=== PATIENT | female | born 1960 | race Caucasian/White ===

== ENCOUNTER 2016-04-26 08:24 | Emergency (ER) | payer BC, MEDICAID ==
[~2016-04-26] VITALS: Wt 61.0 kg
[~2016-04-26 08:24] MED LIST: DOCU-144 PO; HYDR-3498 PO
[2016-04-26] MEDS ORDERED: morphine 4 MG/ML VIAL IV STA (08:58)
[2016-04-26] MEDS ORDERED: ONDANSETRON 4 MG INJ IV STA (08:58)
[2016-04-26] MEDS ORDERED: SOD CHLORIDE 0.9% 1,000 ML IV ONE (09:00)
--- NOTE | 2016-04-26 09:41 | RADRPT ---
PROCEDURE: CT Brain without. CLINICAL INDICATION: Headache. TECHNIQUE: A CT of the brain was performed on multidetector high-resolution CT scanner utilizing a xial sections from the skull base through the vertex without contrast. The scan was reviewed in sof t tissue brain and high frequency resolution bone algorithm windows. Images were reviewed on a high -resolution PACS workstation. One or more the following does reduction techniques were utilized: Aut omated exposure control, adjustment of the mA/ or kV according to patient's size, or use of iterativ e reconstruction technique. The exam CTDI = 45.0 mGy and the DLP = 720.23 mGy-cm. COMPARISON: Brain CT 08/07/2013. FINDINGS: The ventricles and sulci are mildly prominent indicative of volume loss. There is no intracranial he morrhage, mass effect or midline shift. No abnormal intra-axial or extra-axial fluid collections ar e seen. The benavidez/white matter differentiation is preserved. There are trace scattered foci of hypoattenuation in the white matter, which are nonspecific in etio logy but likely reflect chronic small vessel ischemic changes. There are trace intracranial vascula r calcifications consistent with atherosclerosis. The visualized paranasal sinuses are essentially c lear. IMPRESSION: 1. No acute intracranial hemorrhage, transcortical infarction or mass effect. 2. Trace intracranial atherosclerosis and chronic small vessel ischemic changes. 3. Mild generalized cerebral volume loss. RPTAT: AA .Antonio Ledesma MD, MD Date Time Electronically viewed and signed by .Antonio Ledesma MD, MD on 04/26/2016 09:41 .N/
[2016-04-26 10:06] LABS: URINE BLOOD (Dip) POC 1+ (NEGATIVE)
[2016-04-26] MEDS ORDERED: CEPHALEXIN 500 MG CAP PO ONE (10:30)
[2016-04-26] MEDS ORDERED: HYDR-906 PO (10:34)
[2016-04-26] MEDS ORDERED: CEPH-443 PO (10:34)
--- NOTE | 2016-04-26 10:45 | ERD ---
ER Documentation Chief Complaint Date/Time DATE: 04/26/16 TIME: 10:43 Chief Complaint Headache HPI 55-year-old female comes to emergency room with a headache that started this morning that is occipital, began around 3 AM. She has a history of migraine headaches and states that this pain is similar to migraine just intensity is worse. Usually gets better with Excedrin so she tried to take them this morning but it only alleviated her pain mildly. She denies any weakness, numbness, tingling associated or head trauma. No fevers or chills. She states that she has some suprapubic pressure over the last few days and was going to see her primary care doctor this week. ROS All systems reviewed and are negative except as per history of present illness. Medications Home Meds Active Scripts Hydrocodone/Acetaminophen ([place] 5-325 Tablet) 1 Each Tablet, 1 TAB PO Q6H Y for PAIN, #10 TAB Prov:AC KERR PA-C 04/26/16 Cephalexin* (Keflex*) 500 Mg Capsule, 500 MG PO TID for 7 Days, CAP Prov:AC KERR PA-C 04/26/16 Hydrocodone Bit/Acetaminophen (Anexsia 5-325 Mg Tablet) 1 Tab Tab, 1 TAB PO Q4H Y for PAIN LEVEL 4-7 for 7 Days, TAB Prov:RACHAEL NÚÑEZ MD 05/08/15 Docusate Sodium* (Colace*) 100 Mg Cap, 100 MG PO BID Y for CONSTIPATION for 10 Days, CAP Prov:RACHAEL NÚÑEZ MD 05/08/15 Allergies Allergies: Coded Allergies: No Known Allergy (Unverified , 05/06/15) PMhx/Soc History of Surgery: Yes (TUBAL LIGATION, ) Anesthesia Reaction: No Hx Neurological Disorder: Yes ((L) GOOT NEUROPOTY, BURNING SENSATIONS) Hx Respiratory Disorders: No Hx Cardiac Disorders: No (HTN) Hx Psychiatric Problems: No Hx Miscellaneous Medical Probl: No Hx Alcohol Use: No Hx Substance Use: No Hx Tobacco Use: No Smoking Status: Never smoker Physical Exam Vitals Vital Signs Date Time Temp Pulse Resp B/P Pulse Ox O2 Delivery O2 Flow Rate FiO2 04/26/16 08:27 98.8 61 20 179/98 98 Physical Exam General: Well-developed, well-nourished. The patient appears in no acute distress. HEENT: Head is normocephalic, atraumatic. No scleral icterus. Pupils are equal , round, and reactive. Oral mucous membranes are moist. No pharyngeal erythema. Neck: Supple. Nontender. Lungs: Clear to auscultation. Normal air movement. Heart: Regular rate and rhythm. S1 and S2 are normal. No murmurs, gallops, or rubs. Abdomen: Soft, nontender, nondistended. Bowel sounds are normoactive. Extremities: No clubbing or cyanosis. Normal pulses. Moving extremities x 4. No weakness. Neurologic: Alert and oriented 3. No focal deficits. Skin: Normal turgor. No rash or lesions. Results 24 hrs Laboratory Tests Test 04/26/16 10:07 Bedside Urine Blood 1+ Bedside Urine Glucose (UA) Negative Bedside Urine Ketones (LAB) Negative Bedside Urine Leukocyte Esterase (L 3+ Bedside Urine Nitrite (LAB) Negative Bedside Urine Protein (LAB) Negative Bedside Urine pH (LAB) 6.0 Current Medications Medications (Trade) Dose Ordered Sig/Lisa Route PRN Reason Start Time Stop Time Status Last Admin Dose Admin Sodium Chloride (NS) 1,000 ml @ 1,000 mls/hr Q1H ONCE IV 04/26/16 09:00 04/26/16 09:59 04/26/16 09:29 Morphine Sulfate (morphine) 4 mg ONCE STAT IV 04/26/16 08:58 04/26/16 08:59 04/26/16 09:24 Ondansetron HCl (Zofran Inj) 4 mg ONCE STAT IV 04/26/16 08:58 04/26/16 08:59 04/26/16 09:24 Cephalexin (Keflex) 500 mg ONCE ONCE PO 04/26/16 10:30 04/26/16 10:31 04/26/16 10:36 PROCEDURE: CT Brain without. CLINICAL INDICATION: Headache. TECHNIQUE: A CT of the brain was performed on multidetector high-resolution CT scanner utilizing axial sections from the skull base through the vertex without contrast. The scan was reviewed in soft tissue brain and high frequency resolution bone algorithm windows. Images were reviewed on a high- resolution PACS workstation. One or more the following does reduction techniques were utilized: Automated exposure control, adjustment of the mA/ or kV according to patient's size, or use of iterative reconstruction technique. The exam CTDI = 45.0 mGy and the DLP = 720.23 mGy-cm. COMPARISON: Brain CT 08/07/2013. FINDINGS: The ventricles and sulci are mildly prominent indicative of volume loss. There is no intracranial hemorrhage, mass effect or midline shift. No abnormal intra- axial or extra-axial fluid collections are seen. The benavidez/white matter differentiation is preserved. There are trace scattered foci of hypoattenuation in the white matter, which are nonspecific in etiology but likely reflect chronic small vessel ischemic changes. There are trace intracranial vascular calcifications consistent with atherosclerosis. The visualized paranasal sinuses are essentially clear. IMPRESSION: 1. No acute intracranial hemorrhage, transcortical infarction or mass effect. 2. Trace intracranial atherosclerosis and chronic small vessel ischemic changes. 3. Mild generalized cerebral volume loss. RPTAT: AA .Antonio Ledesma MD, MD Date Time Electronically viewed and signed by .Antonio Ledesma MD, on 04/26/2016 09:41 Procedures/MDM ED course: She was given a fluid bolus of normal saline 1 L, morphine 4 mg and Zofran 4 mg IV. Urine dip shows 3+ leukocytes and patient was given Keflex. MDM: 55-year-old female presents with an occipital migraine versus tension type headache 1 day, and her workup was consistent with a urinary tract infection that could explain her migraine headache. She states that this headache was much more severe than usual and therefore she had a CT scan of the head that was unremarkable. This time her presentation does not appear to sound like a subarachnoid hemorrhage, it is likely acute onset of worsening headache secondary to urinary tract other differentials include stroke, CVA, TIA, mass, intracranial hemorrhage, meningitis, encephalitis and among others. Patient's blood pressure was elevated (>120/80) but appears stable without evidence of hypertension emergency or urgency. The patient was counseled about the risks of hypertension and urged to pursue outpatient monitoring and therapy within a week with their primary care physician. Departure Diagnosis: Primary Impression: UTI (urinary tract infection) Additional Impression: Headache Condition: Good Patient Instructions: Understanding Urinary Tract Infections (UTIs), Self-Care for Headaches Additional Instructions: Llame al doctor MAANA y cristofer bren PRISCILLA PARA DENTRO DE 1-2 JUDD.Dgale a la secretaria que nosotros le instruimos hacer esta priscilla.Avise o llame si morrissey condicin se empeora antes de la priscilla. Regresa aqui si peor o no mejor. AC KERR PA-C Apr 26, 2016 10:45
[2016-04-26 10:48] VITALS: BP 135/79; PULSE 51; RESP 18; TEMP 97.7
== END 2016-04-26 10:49 | disposition home or self-care (01) ==
LOC: FTE 08:24
DX: N39.0 Urinary tract infection, site not specified (principal); I10 Essential (primary) hypertension; E03.9 Hypothyroidism, unspecified
CPT/HCPCS: 70450; 81003; 96374; 96375; J2270; J2405; J7030; Z7502; Z7610

== ENCOUNTER 2016-06-07 17:15 | Emergency (ER) | payer MEDICAID ==
[~2016-06-07] VITALS: Ht 157.5 cm; Wt 61.5 kg
[~2016-06-07 17:15] MED LIST changes: +CEPH-443 PO; +HYDR-906 PO
[2016-06-07 17:17] VITALS: Ht 157.5 cm; Wt 61.5 kg
[2016-06-07] MEDS ORDERED: EXCED PO (17:48)
[2016-06-07] MEDS ORDERED: HYDROmorphONE 2 MG/ML SYG IV ONE (18:00)
[2016-06-07] MEDS ORDERED: ONDANSETRON 4 MG INJ IV ONE (18:00)
--- NOTE | 2016-06-07 18:19 | RADRPT ---
PROCEDURE: XR Wrist. CLINICAL INDICATION: Trauma TECHNIQUE: AP, lateral and oblique views of the left wrist were performed. COMPARISON: No prior studies are available for comparison. FINDINGS: There is an impacted, comminuted and mildly dorsally angulated and displaced fracture of the distal radius. There is no definite articular surface involvement of the radiocarpal joint. There is invo lvement of the distal radioulnar joint articular surface. There is a mildly displaced ulnar styloid fracture as well. The carpal bones appear maintained. Carpal alignment is preserved. Bone mineral density is decreased. IMPRESSION: 1. Distal radial and ulnar fractures, as above. 2. Decreased bone mineral density. RPTAT: QQ .Laurent Fagan MD, Date Time Electronically viewed and signed by .Laurent Fagan MD, MD on 06/07/2016 18:19 .d/
--- NOTE | 2016-06-07 18:22 | RADRPT ---
PROCEDURE: XR Great Toe. CLINICAL INDICATION: Trauma TECHNIQUE: Three views of the left great toe are available for review COMPARISON: No prior studies are available for comparison. FINDINGS: There is a minimally displaced fracture at the base of the distal phalanx. There is likely articula r surface involvement. Bipartite medial hallux sesamoid. The remaining osseous structures are intact . There is no radiopaque foreign body. IMPRESSION: 1. Nondisplaced, likely intra-articular fracture at the base of the first distal phalanx. RPTAT: QQ .Laurent Fagan MD, Date Time Electronically viewed and signed by .Laurent Fagan MD, on 06/07/2016 18:21 .d/
--- NOTE | 2016-06-07 18:45 | RADRPT ---
PROCEDURE: CT Brain without contrast. CLINICAL INDICATION: Trauma TECHNIQUE: A CT of the brain was performed on a [employer] 64-slice CT scanner utilizing axial imaging from the skull base through the vertex without IV contrast. Multiplanar reformatted images were made. Images were reviewed on a PACS workstation. The CTDIvol is 44.7 mGy and the DLP is 720 mGycm. COMPARISON: April 26, 2016 FINDINGS: Small left parietal scalp hematoma without underlying calvarial fracture. There is no intracranial hemorrhage, mass effect, or midline shift. No extra-axial fluid collection is seen. The ventricles and sulci are normal in size and configuration. The density of the brain is normal, and the benavidez white matter differentiation appears well-preserved. The visualized paranasal sinuses and osseous structures are grossly unremarkable. IMPRESSION: Small left parietal scalp hematoma without underlying calvarial fracture nor intracranial injury. Physician Judy Date Time Electronically viewed and signed by Physician Judy on 06/07/2016 18:44 ML/
[2016-06-07] MEDS ORDERED: IBUP800T25 PO (20:48)
[2016-06-07] MEDS ORDERED: HYDR-906 PO (20:48)
--- NOTE | 2016-06-07 20:59 | ERD ---
ER Documentation Chief Complaint Date/Time DATE: 06/07/16 TIME: 20:54 Chief Complaint Complains of left Arm pain after a fall HPI This is a 55-year-old female who is standing on a small step ladder she lost her balance and fell backwards onto the carpet. She hit the back of her left occipital head. She had no loss of consciousness no preceding dizziness she says she has lost her balance. She is complaining of pain to her left distal wrist. She also also complaining of pain to her left great toe at the base. Denies any neck pain chest pain back pain other extremity pain no numbness weakness no short of breath no abdominal pain no amnesia no headache ROS All systems reviewed and are negative except as per history of present illness. Medications Home Meds Active Scripts Ibuprofen* (Motrin*) 800 Mg Tab, 800 MG PO Q6H Y for PAIN AND OR ELEVATED TEMP, #30 TAB Prov:AKBAR ADAMS DO 06/07/16 Hydrocodone/Acetaminophen ([place] 5-325 Tablet) 1 Each Tablet, 1 TAB PO Q6H Y for PAIN, #20 TAB Prov:AKBAR ADAMS DO 06/07/16 Hydrocodone/Acetaminophen ([place] 5-325 Tablet) 1 Each Tablet, 1 TAB PO Q6H Y for PAIN, #10 TAB Prov:AC KERR PA-C 04/26/16 Cephalexin* (Keflex*) 500 Mg Capsule, 500 MG PO TID for 7 Days, CAP Prov:AC EKRR PA-C 04/26/16 Hydrocodone Bit/Acetaminophen (Anexsia 5-325 Mg Tablet) 1 Tab Tab, 1 TAB PO Q4H Y for PAIN LEVEL 4-7 for 7 Days, TAB Prov:RACHAEL NÚÑEZ MD 05/08/15 Docusate Sodium* (Colace*) 100 Mg Cap, 100 MG PO BID Y for CONSTIPATION for 10 Days, CAP Prov:RACHAEL NÚÑEZ MD 05/08/15 Reported Medications Acetaminophen/Aspirin/Caffeine* (Excedrin*) 1 Tab Tab, 1 TAB PO Q8H PRN Y for MIGRAINE, TAB 06/07/16 Allergies Allergies: Coded Allergies: No Known Allergy (Unverified , 05/06/15) PMhx/Soc History of Surgery: Yes (TUBAL LIGATION, GALLBLADDER REMOVAL) Anesthesia Reaction: No Hx Neurological Disorder: Yes ((L) GOOT NEUROPOTY, BURNING SENSATIONS) Hx Respiratory Disorders: No Hx Cardiac Disorders: No (HTN) Hx Psychiatric Problems: No Hx Miscellaneous Medical Probl: No Hx Alcohol Use: No Hx Substance Use: No Hx Tobacco Use: No Smoking Status: Unknown if ever smoked FmHx Family History: No coronary disease Physical Exam Vitals Vital Signs Date Time Temp Pulse Resp B/P Pulse Ox O2 Delivery O2 Flow Rate FiO2 06/07/16 19:30 98.7 54 18 154/84 100 Room Air 06/07/16 17:17 98.5 80 20 139/102 100 Physical Exam Const: Well-developed, well-nourished Head: Small left scalp hematoma on the occipital region, normocephalic Eyes: Normal Conjunctiva, PERRLA, EOMI, normal sclera, no nystagmus ENT: Normal External Ears, Nose and Mouth, moist mucus membranes. Neck: Full range of motion. No meningismus, no lymphadenopathy. Resp: Clear to auscultation bilaterally, no wheezing, rhonchi, rales Cardio: Regular rate and rhythm, no murmurs, S1 S2 present Abd: Soft, non tender x 4, non distended. Normal bowel sounds, no guarding or rebound, no pulsitile abdominal masses or bruits Skin: No petechiae or rashes, no ecchymosis , no maculopapular rash Back: No midline or flank tenderness Ext: No cyanosis, or edema, FROM x 4, there is swelling to the dorsal aspect of the left wrist with possible deformity, there is tenderness to the base of the left great toe with some bruising neurovascularly intact x 4 Neur: Awake and alert, STR 5/5 x 4, sensation intact x 4, no focal findings, cerebellum intact Psych: Normal Mood and Affect Results 24 hrs Current Medications Medications (Trade) Dose Ordered Sig/Lisa Route PRN Reason Start Time Stop Time Status Last Admin Dose Admin Hydromorphone HCl (Dilaudid) 1 mg ONCE ONCE IV 06/07/16 18:00 06/07/16 18:01 DC 06/07/16 17:58 Ondansetron HCl (Zofran Inj) 4 mg ONCE ONCE IV 06/07/16 18:00 06/07/16 18:01 DC 3/26/17 17:58 Procedures/MDM PROCEDURE: CT Brain without contrast. CLINICAL INDICATION: Trauma TECHNIQUE: A CT of the brain was performed on a [employer] 64-slice CT scanner utilizing axial imaging from the skull base through the vertex without IV contrast. Multiplanar reformatted images were made. Images were reviewed on a PACS workstation. The CTDIvol is 44.7 mGy and the DLP is 720 mGycm. COMPARISON: April 26, 2016 FINDINGS: Small left parietal scalp hematoma without underlying calvarial fracture. There is no intracranial hemorrhage, mass effect, or midline shift. No extra- axial fluid collection is seen. The ventricles and sulci are normal in size and configuration. The density of the brain is normal, and the benavidez white matter differentiation appears well-preserved. The visualized paranasal sinuses and osseous structures are grossly unremarkable. IMPRESSION: Small left parietal scalp hematoma without underlying calvarial fracture nor intracranial injury. Physician Judy Date Time Electronically viewed and signed by Scott Schroeder Physician on 06/07/2016 18 :44 ML/ CC: AKBAR ADAMS DO PROCEDURE: XR Great Toe. CLINICAL INDICATION: Trauma TECHNIQUE: Three views of the left great toe are available for review COMPARISON: No prior studies are available for comparison. FINDINGS: There is a minimally displaced fracture at the base of the distal phalanx. There is likely articular surface involvement. Bipartite medial hallux sesamoid. The remaining osseous structures are intact. There is no radiopaque foreign body. IMPRESSION: 1. Nondisplaced, likely intra-articular fracture at the base of the first distal phalanx. RPTAT: QQ .Laurent Fagan MD, MD Date Time Electronically viewed and signed by .Laurent Fagan MD, on 06/07/2016 18:21 .d/ CC: AKBAR ADAMS DO PROCEDURE: XR Wrist. CLINICAL INDICATION: Trauma TECHNIQUE: AP, lateral and oblique views of the left wrist were performed. COMPARISON: No prior studies are available for comparison. FINDINGS: There is an impacted, comminuted and mildly dorsally angulated and displaced fracture of the distal radius. There is no definite articular surface involvement of the radiocarpal joint. There is involvement of the distal radioulnar joint articular surface. There is a mildly displaced ulnar styloid fracture as well. The carpal bones appear maintained. Carpal alignment is preserved. Bone mineral density is decreased. IMPRESSION: 1. Distal radial and ulnar fractures, as above. 2. Decreased bone mineral density. RPTAT: QQ .Laurent Fagan MD MD Date Time Electronically viewed and signed by .Laurent Fagan MD, MD on 06/07/2016 18:19 .d/ CC: AKBAR ADAMS DO Patient received a left volar splint and a postop shoe. She will follow-up with orthopedics this week. No signs of head injury on CT Departure Diagnosis: Primary Impression: Head injury Encounter type: initial encounter Qualified Code: S09.90XA - Head injury, initial encounter Additional Impressions: Toe fracture Encounter type: initial encounter Toe: great toe Fracture type: closed Phalanx: proximal Fracture alignment: nondisplaced Laterality: left Qualified Code: S92.415A - Closed nondisplaced fracture of proximal phalanx of left great toe, initial encounter Radius and ulna distal fracture Encounter type: initial encounter Fracture type: closed Laterality: left Qualified Code: S52.502A - Radius and ulna distal fracture, left, closed, initial encounter Condition: Stable Patient Instructions: HEAD INJURY with Wake-Up (Adult), Radius And Ulna Fx, No Reduction Required, Fracture, Toe [Closed] Referrals: PERRI,IN TAD AKBAR PLEITEZ DO Jun 07, 2016 20:58
[2016-06-07] MEDS ORDERED: ONDANSETRON 4 MG INJ IV STA (21:49)
[2016-06-07] MEDS ORDERED: HYDROmorphONE 1 MG/ML SYG IV STA (21:49)
[2016-06-07 22:02] VITALS: BP 149/93; PULSE 60; RESP 18; TEMP 98.8
== END 2016-06-07 22:02 | disposition home or self-care (01) ==
LOC: E/R 17:15
DX: S09.90XA Unspecified injury of head, initial encounter (principal); S92.415A Nondisplaced fracture of proximal phalanx of left great toe, initial encounter for closed fracture; S52.502A Unspecified fracture of the lower end of left radius, initial encounter for closed fracture; I10 Essential (primary) hypertension; E03.9 Hypothyroidism, unspecified; G93.89 Other specified disorders of brain; W11.XXXA Fall on and from ladder, initial encounter; Y92.9 Unspecified place or not applicable
CPT/HCPCS: 29125; 70450; 73110; 73660; 96374; 96375; 96376; J1170; J2405; L3260; Z7502

== ENCOUNTER 2017-04-22 20:05 | Emergency (ER) | END 2017-04-23 04:20 | disposition home or self-care (01) ==

== ENCOUNTER 2017-05-12 09:49 | Emergency (ER) | END 2017-05-12 13:20 | disposition home or self-care (01) ==

== ENCOUNTER 2017-06-10 10:47 | Emergency (ER) | END 2017-06-10 12:56 | disposition home or self-care (01) ==

== ENCOUNTER 2017-10-30 17:38 | Emergency (ER) | END 2017-10-30 19:57 | disposition home or self-care (01) ==

== ENCOUNTER 2017-11-09 13:51 | Emergency (ER) | END 2017-11-09 16:41 | disposition home or self-care (01) ==

== ENCOUNTER 2018-07-22 18:04 | Emergency (ER) | payer MEDICAID ==
[~2018-07-22] VITALS: Ht 152.4 cm; Wt 57.7 kg
[~2018-07-22 18:04] MED LIST changes: +AMLO2.5T2 PO; -DOCU-144 PO; +EXCED PO; -HYDR-3498 PO; -HYDR-906 PO; +IBUP-1542 PO; +IBUP800T48 PO; +NAPR-985 PO; +NITR-58 PO; +SULF1TAB31 PO
[2018-07-22 18:12] VITALS: Ht 152.4 cm; Wt 57.7 kg
[2018-07-22] MEDS ORDERED: KETOROLAC 30 MG INJ IM STA (19:08)
[2018-07-22] MEDS ORDERED: IBUP-1542 PO (19:10)
[2018-07-22] MEDS ORDERED: ALBU8.5H8 INH (19:10)
[2018-07-22] MEDS ORDERED: BENZ-6 PO (19:10)
[2018-07-22] MEDS ORDERED: AZIT500T3 PO (19:10)
[2018-07-22] MEDS ORDERED: IBUPROFEN 800 MG TAB PO ONE (20:00)
[2018-07-22] MEDS ORDERED: DEXAMETHASONE 1 MG TAB PO ONE (20:00)
[2018-07-22] MEDS ORDERED: DEXAMETHASONE 4 MG TAB PO ONE (20:00)
[2018-07-22] MEDS ORDERED: ALBU18HF INHALATION (20:01)
[2018-07-22] MEDS ORDERED: IBUP800T48 PO (20:01)
--- NOTE | 2018-07-22 20:06 | ERD ---
ER Documentation Chief Complaint Chief Complaint CHEST PAIN; COUGH - HX OF BRONCHITIS HPI 57-year-old female who has a family member interpreting. The patient states that since January she has had a dry nonproductive cough. She is having chest wall pain and upper back pain that is only with coughing. Patient states that she was seen in all of you and treated with some medication but has persistent cough. Patient does take blood pressure medication but does not know the name. She denies any exertional chest pressure, no pleuritic pain, no hemoptysis. No fevers or chills. No significant weight loss. Patient is a non-smoker. Because of the persistence of symptoms she is concerned and presented to the emergency room. ROS All systems reviewed and are negative except as per history of present illness. Medications Home Meds Active Scripts Albuterol Sulfate* (Ventolin HFA*) 18 Gm Hfa.aer.ad, 2 PUFF INHALATION Q4H, #1 INHALER Prov:HILLARY MONTES MD 07/22/18 Ibuprofen* (Motrin*) 800 Mg Tab, 800 MG PO Q6H PRN for PAIN AND OR ELEVATED TEMP, #30 TAB Prov:HILLARY MONTES MD 07/22/18 Benzonatate* (Tessalon Perle*) 100 Mg Capsule, 100 MG PO Q8H PRN for COUGH, #20 CAP Prov:LETICIA BRITTON MD 07/22/18 Ibuprofen* (Motrin*) 600 Mg Tab, 600 MG PO Q8 PRN for PAIN AND/OR INFLAMMATION, #30 TAB Prov:LETICIA BRITTON MD 07/22/18 Albuterol Sulfate* (Proair HFA*) 8.5 Gm Hfa.aer.ad, 2 PUFF INH Q6H PRN for WHEEZING AND SOB, #1 INHALER Prov:LETICIA BRITTON MD 07/22/18 Azithromycin* (Zithromax*) 500 Mg Tablet, 500 MG PO DAILY for 5 Days, TAB Prov:LETICIA BRITTON MD 07/22/18 Cephalexin* (Keflex*) 500 Mg Capsule, 500 MG PO QID for 7 Days, CAP Prov:ELIJAH MADDEN PA-C 11/09/17 Sulfamethoxazole/Trimethoprim* (Bactrim Ds* Tablet) 1 Each Tablet, 1 TAB PO BID for 7 Days, #14 TAB Prov:ELIJAH MADDEN PA-C 11/09/17 Naproxen* (Naprosyn*) 500 Mg Tablet, 500 MG PO BID PRN for PAIN AND/OR INFLAMMATION for 5 Days, #10 TAB Prov:SARWAT GARCIA MD 10/30/17 Sulfamethoxazole/Trimethoprim* (Bactrim Ds* Tablet) 1 Each Tablet, 1 TAB PO BID for 3 Days, #6 TAB Prov:SARWAT GARCIA MD 10/30/17 Amlodipine Besylate* (Norvasc*) 2.5 Mg Tablet, 2.5 MG PO DAILY, #30 TAB Prov:HILLARY MONTES MD 06/10/17 Ibuprofen* (Motrin*) 600 Mg Tab, 600 MG PO Q6, #30 TAB Prov:MANI ALMARAZ PA-C 05/12/17 Nitrofurantoin Monohyd Macrocr* (Macrobid*) 100 Mg Capsr, 100 MG PO BID for 5 Days, CAP Prov:MANI ALMARAZ PA-C 05/12/17 Ibuprofen* (Ibuprofen*) 600 Mg Tablet, 600 MG PO Q6, #20 TAB Prov:LEONIDAS JEONG MD 04/23/17 Sulfamethoxazole/Trimethoprim* (Bactrim Ds* Tablet) 1 Each Tablet, 1 TAB PO BID, #14 TAB Prov:LEONIDAS JEONG MD 04/23/17 Ibuprofen* (Motrin*) 800 Mg Tab, 800 MG PO Q6H PRN for PAIN AND OR ELEVATED TEMP, #30 TAB Prov:AKBAR ADAMS DO 06/07/16 Reported Medications Acetaminophen/Aspirin/Caffeine* (Excedrin*) 1 Tab Tab, 1 TAB PO Q8H PRN PRN for MIGRAINE, TAB 06/07/16 Allergies Allergies: Coded Allergies: Anesthetics - Amide Type (Verified Allergy, Unknown, emesis, 07/22/18) Anesthetics - Trice Type- Parabens (Verified Allergy, Unknown, emesis, 07/22/18) PMhx/Soc History of Surgery: Yes (Cholecystectomy, L forearm sx, tubal ligation. ) Anesthesia Reaction: No Hx Neurological Disorder: No Hx Respiratory Disorders: No Hx Cardiac Disorders: No Hx Psychiatric Problems: No Hx Miscellaneous Medical Probl: Yes (HTN, anemia. ) Hx Alcohol Use: No Hx Substance Use: No Hx Tobacco Use: No Smoking Status: Never smoker FmHx Family History: No diabetes Physical Exam Vitals Vital Signs Date Temp Pulse Resp B/P (MAP) Pulse Ox O2 O2 Flow FiO2 Time Delivery Rate 07/22/18 99.0 61 18 190/84 99 18:12 (119) Physical Exam General: Well developed, well nourished, no acute distress Head: Normocephalic, atraumatic. Eyes: Pupils equally reactive, EOM intact ENT: Moist mucous membranes Neck: Supple, no lymphadenopathy Respiratory: Lungs clear bilaterally, no distress Cardiovascular: RRR, no murmurs, rubs, or gallops Abdominal: Soft, non-tender, non-distended, no peritoneal signs : Deferred MSK: No edema, no unilateral swelling, 5/5 strength Neurologic: Alert and oriented, moving all extremities, normal speech, no focal weakness, no cerebellar signs Skin: No rash Psych: Normal mood Results 24 hrs Current Medications Medications Dose Sig/Lisa Start Time Status Last (Trade) Ordered Route PRN Stop Time Admin Dose Reason Admin Ketorolac 30 mg ONCE STAT 07/22/18 DC Tromethamine IM 19:08 (Toradol) 07/22/18 19:12 Ibuprofen 800 mg ONCE ONCE 07/22/18 DC 07/22/18 (Motrin) PO 20:00 19:37 07/22/18 20:01 10 mg ONCE ONCE 07/22/18 DC Dexamethasone PO 20:00 (Decadron) 07/22/18 20:00 10 mg ONCE ONCE 07/22/18 DC Dexamethasone PO 20:00 (Decadron) 07/22/18 20:01 Procedures/MDM EKG, MONITORS, & DIAGNOSTIC IMAGING: Triage EKG EKG: I reviewed and interpreted a 12-lead EKG. Rhythm: Normal sinus rhythm ST Changes: No contiguous ST segment elevations T waves: No contiguous T wave inversions Impression: No evidence of acute cardiac ischemia Chest x-ray: I reviewed and interpreted a 2view of the chest Mediastinum: No enlargement Cardiac silhouette: No cardiomegaly Airspace: Clear lung sherman bilaterally without evidence of pneumothorax Bones: No evidence of fracture MEDICAL DECISION MAKING: The patient has a chronic cough. Muscular skeletal pain related to the cough. The patient has no exertional symptoms. Her description is not consistent with cardiac etiology. I do not believe that a troponin or laboratory testing is necessary. Consider bronchitis versus nonspecific chronic cough. Patient does take a blood pressure medication and needs to follow-up with primary care physician as NOLBERTO inhibitor could lead to chronic cough. I do not believe a CT of the chest is necessary. Low concern for malignancy or pulmonary embolism. A chest x-ray would be reasonable to rule out infectious process. Low concern for pneumothorax. Patient was advised given the chronicity that we may not have an answer. She needs to follow with the primary care physician and may require some further testing including pulmonology consultation and referral. Patient is extremely well-appearing in the emergency room setting. ER COURSE: * Patient given NSAID and steroid. * Chest x-ray imaging is negative. At this point I believe the patient be safely discharged with outpatient primary care follow-up. Local resources provided. CONSULTATION: None DISPOSITION PLAN: The patient does not have an identifiable emergent medical condition that warrants inpatient hospitalization at this time. The patient is deemed safe for discharge with outpatient follow-up. We discussed follow up with the patient's primary care doctor within 24 to 48 hours as needed. We also discussed return to the emergency room for worsening symptoms or worsening condition. Outpatient referral: None required Discharge Medications: Ventolin, Motrin Departure Diagnosis: Primary Impression: Chronic cough Condition: Stable Patient Instructions: Bronchitis, Antiobiotic Treatment (Adult) Referrals: NO PRIMARY,CARE PHYSICIAN (PCP) [facility] ([facility]) Usted se santacruz hecho un examen mdico de control que le indica que no est en bren condicin que requiera tratamiento urgente en el Departamento de Emergencia. Un estudio ms profundo y el tratamiento de morrissey condicin pueden esperar sin ningn riesgo hasta que usted sea atendida/o en el consultorio de morrissey mdico o bren clnica. Es responsabilidad suya arreglar bren priscilla para el seguimiento del sandro. MANEJO DE CONDICIONES NO URGENTES EN EL FUTURO 1) Si usted tiene un mdico de atencin primaria: Usted debera llamar a morrissey mdico de atencin primaria antes de venir al departamento de emergencia. Despus de las horas de consultorio, morrissey doctor o morrissey asociado/a est disponible por telfono. El mdico o enfermero de osmar en el servicio telefnico puede asesorarle por christopher medio para atender el problema, o sandro contrario se puede programar bren priscilla. 2) Si usted no tiene un mdico de atencin primaria: Llame al mdico o clnica de referencia que aparece abajo ismael las horas de consultorio para hacer bren priscilla para que le vean. CLINICAS: [facility] [phone] [facility] [phone] [address] [facility] [phone] [address] [facility]. [place] [id number] [phone] [facility] [place] [id number] [phone] [facility]. [phone] [address] [facility]. [facility] () Usted se santacruz hecho un examen mdico de control que le indica que no est en bren condicin que requiera tratamiento urgente en el Departamento de Emergencia. Un estudio ms profundo y el tratamiento de morrissey condicin pueden esperar sin ningn riesgo hasta que usted sea atendida/o en el consultorio de morrissey mdico o bren clnica. Es responsabilidad suya arreglar bren priscilla para el seguimiento del sandro. MANEJO DE CONDICIONES NO URGENTES EN EL FUTURO 1) Si usted tiene un mdico de atencin primaria: Usted debera llamar a morrissey mdico de atencin primaria antes de venir al departamento de emergencia. Despus de las horas de consultorio, morrissey doctor o morrissey asociado/a est disponible por telfono. El mdico o enfermero de osmar en el servicio telefnico puede asesorarle por christopher medio para atender el problema, o sandro contrario se puede programar bren priscilla. 2) Si usted no tiene un mdico de atencin primaria: Llame al mdico o condado institucions de referencia que aparece abajo ismael las horas de consultorio para hacer bren priscilla para que le vean. SI USTED NO PUEDE PAGAR PARA DEBBIE UN MEDICO puede ir a: [facility] [address] [place] [address] [facility] [address] [place] [address] [facility] [address] [place] [address] [facility] [facility] [address] [place] [place], [place] [id number] Additional Instructions: Llame al doctor nombrado abajo (Referral Sources) MAANA y cristofer bren PRISCILLA PARA DENTRO DE BREN SEMANA. Dgale a la secretaria que nosotros le instruimos hacer esta priscilla.Avise o llame si morrissey condicin se empeora antes de la priscilla. HILLARY MONTES MD July 22, 2018 20:06
[2018-07-22 20:44] VITALS: BP 140/74; PULSE 60; RESP 18
== END 2018-07-22 20:45 | disposition home or self-care (01) ==
LOC: E/R 18:04
DX: R05 Cough (principal); R07.9 Chest pain, unspecified
CPT/HCPCS: 71046; 93005; Z7502; Z7610